=== PATIENT | male | born 1990 | race Caucasian/White ===

== ENCOUNTER 2016-10-23 22:54 | Emergency (ER) | payer OTHER ==
[~2016-10-23] VITALS: Ht 180.3 cm; Wt 68.0 kg
[~2016-10-23 22:54] MED LIST: ROXICODONE15 MG ORAL
[2016-10-23 22:55] VITALS: BP 114/78
[2016-10-23 23:10] VITALS: BP 105/74
--- NOTE | 2016-10-24 03:57 | Emergency Room Report ---
History of Present Illness General Chief Complaint: Behavioral Complaint Source: Patient Present Illness HPI 25-year-old male presents to ED for evaluation. Patient in by EMS, [employer] is also present. Per EMS patient reportedly overdosed on OxyContin. Reportedly took 6 tablets as stated by friends. Patient denies taking 6 tablets. States he took 3 tablets was not try to hurt himself. Upon arrival patient is agitated and upset. States that he was not try to hurt himself. Denies any suicidal or homicidal ideation. Denies hearing voices. Denies alcohol use. No other aggravating relieving factors. Denies any other associated Allergies: Coded Allergies: No Known Allergies (Unverified , 10/23/16) Patient History Past Medical History: none Past Surgical History: none Pertinent Family History: none Social History: Denies: alcohol use, drug use, smoking Immunizations: UTD Reviewed Nursing Documentation: PMH: Agreed, PSxH: Agreed Nursing Documentation-PMH Past Medical History: No History, Except For Review of Systems All Other Systems: negative except mentioned in HPI Physical Exam Vital Signs Date Time Temp Pulse Resp B/P Pulse Ox O2 Delivery O2 Flow Rate FiO2 10/23/16 22:36 99.1 99 20 112/78 98 Room Air Sp02 EP Interpretation: reviewed, normal General Appearance: no apparent distress, alert, GCS 15, non-toxic Head: normocephalic, atraumatic Eyes: bilateral eye PERRL, bilateral eye normal inspection ENT: hearing grossly normal, normal pharynx, no angioedema, normal voice Neck: full range of motion, supple/symm/no masses Respiratory: chest non-tender, lungs clear, normal breath sounds, speaking full sentences Cardiovascular #1: regular rate, rhythm, no edema Cardiovascular #2: 2+ carotid (R), 2+ carotid (L), 2+ radial (R), 2+ radial (L) , 2+ dorsalis pedis (R), 2+ dorsalis pedis (L) Gastrointestinal: normal bowel sounds, non tender, soft, non-distended, no guarding, no rebound Rectal: deferred Genitourinary: normal inspection, no CVA tenderness Musculoskeletal: back normal, gait/station normal, normal range of motion, non- tender Neurologic: alert, oriented x3, responsive, motor strength/tone normal, sensory intact, speech normal Psychiatric: judgement/insight normal, memory normal, anxious Reflexes: 3+ bicep (R), 3+ bicep (L), 3+ tricep (R), 3+ tricep (L), 3+ knee (R) , 3+ knee (L) Skin: normal color, no rash, warm/dry, well hydrated Lymphatic: no adenopathy Medical Decision Making Diagnostic Impression: Primary Impression: Overdose Qualified Codes: T50.904A - Poisoning by unspecified drugs, medicaments and biological substances, undetermined, initial encounter ER Course 25-year-old male presents ED reportedly overdosing on OxyContin Differential-overdose, psychosis, intoxication Patient placed on stretcher. After initial history and physical I ordered restraints, labs Patient was placed on 5150 hold by [employer] Patient freed himself of the restaints and eloped from ED [employer] was informed and they are currently looking for the patient Diagnosis-overdose Last Vital Signs Date Time Temp Pulse Resp B/P Pulse Ox O2 Delivery O2 Flow Rate FiO2 10/23/16 22:36 99.1 99 20 112/78 98 Room Air Status: unchanged Disposition: ELOPED Condition: Unknown Referrals: NOT CHOSEN TANNA/,REFERRING (PCP) SILAS CERVANTES M.D. Oct 24, 2016 03:56
[2016-10-24 05:57] VITALS: BP 114/78
== END 2016-10-23 23:21 | disposition left against medical advice (07) ==
LOC: EDBD 22:54 → EMR 23:20
DX: T40.2X4A Poisoning by other opioids, undetermined, initial encounter (principal); X58.XXXA Exposure to other specified factors, initial encounter; Y92.9 Unspecified place or not applicable
CPT/HCPCS: 99285

== ENCOUNTER 2017-10-12 02:34 | Emergency (ER) | payer SELFPAY ==
[~2017-10-12] VITALS: Ht 180.3 cm; Wt 64.0 kg
[2017-10-12 03:06] VITALS: BP 135/86
[2017-10-12] MEDS ORDERED: BUSPIRONE HCL15 MG ORAL (03:24)
--- NOTE | 2017-10-12 03:24 | Emergency Room Report ---
History of Present Illness General Chief Complaint: Behavioral Complaint Source: Patient Present Illness HPI Is a 26-year-old male who has history of opiate abuse. Also history of heroin abuse. He presents with chief complaint of anxiety. He said that he was clean for several months and relapsed with drug use again. He quit 2 days ago. Now is feeling anxious. He is worried that it may be something wrong with him. No suicidal thoughts homicidal thought. He has prescription for Valium and clonidine already. Denies any other complaint. He just wanted reassurance that he would not get cancer or some illness because of his drug use. Allergies: Coded Allergies: No Known Allergies (Unverified , 10/23/16) Patient History Past Medical History: see triage record, old chart reviewed Past Surgical History: other Pertinent Family History: none Social History: Reports: smoking, drug use Immunizations: other Reviewed Nursing Documentation: PMH: Agreed; PSxH: Agreed Nursing Documentation-PM Past Medical History: No History, Except For Review of Systems Eye: Denies: eye pain, blurred vision ENT: Denies: ear pain, nose congestion, throat swelling Respiratory: Denies: cough, shortness of breath Cardiovascular: Denies: chest pain, palpitations Gastrointestinal: Denies: abdominal pain, diarrhea, nausea, vomiting Musculoskeletal: Denies: back pain, joint pain Skin: Denies: rash Neurological: Denies: headache, numbness Endocrine: Denies: increased thirst, increased urine Hematologic/Lymphatic: Denies: easy bruising All Other Systems: negative except mentioned in HPI Physical Exam Vital Signs Date Time Temp Pulse Resp B/P (MAP) Pulse Ox O2 Delivery O2 Flow Rate FiO2 10/12/17 02:43 99.0 93 16 135/86 96 Room Air 99.0 vitals normal Sp02 EP Interpretation: reviewed, normal General Appearance: well appearing, no apparent distress, alert Head: normocephalic, atraumatic Eyes: bilateral eye PERRL, bilateral eye EOMI ENT: hearing grossly normal, normal pharynx Neck: full range of motion, supple, no meningismus Respiratory: chest non-tender, lungs clear, normal breath sounds Cardiovascular #1: regular rate, rhythm, no murmur Gastrointestinal: normal bowel sounds, non tender, no mass, no organomegaly, no bruit, non-distended Musculoskeletal: back normal, gait/station normal, normal range of motion Psychiatric: mood/affect normal Skin: warm/dry Medical Decision Making Diagnostic Impression: Primary Impression: Anxiety Additional Impression: Opiate withdrawal ER Course Patient presents with anxiety and withdrawal symptoms. Not suicidal or homicidal. No psychosis. We'll discharge home with BuSpar. Last Vital Signs Date Time Temp Pulse Resp B/P (MAP) Pulse Ox O2 Delivery O2 Flow Rate FiO2 10/12/17 03:06 99.0 93 16 135/86 96 Room Air 99.0 Status: unchanged Disposition: HOME, SELF-CARE Condition: Stable Scripts Buspirone Hcl* (BUSPIRONE HCL*) 15 Mg Tablet 15 MG ORAL TWICE A DAY, #30 TAB 0 Refills Prov: TYLER SHAFER M.D. 10/12/17 Referrals: NON PHYSICIAN (PCP) Patient Instructions: Self-Destructive Behavior Additional Instructions: Follow-up with your doctor in 7 days. Go to rehabilitation. Return if worse. TYLER SHAFER M.D. Oct 12, 2017 03:24
[2017-10-12 03:30] VITALS: BP 135/86
== END 2017-10-12 03:30 | disposition home or self-care (01) ==
LOC: EMR 03:08
DX: F41.9 Anxiety disorder, unspecified (principal); F11.23 Opioid dependence with withdrawal
CPT/HCPCS: 99283

== ENCOUNTER 2017-11-12 03:23 | Emergency (ER) | payer BC ==
[~2017-11-12] VITALS: Ht 177.8 cm; Wt 64.0 kg
[~2017-11-12 03:23] MED LIST changes: +BUSPIRONE HCL15 MG ORAL
[2017-11-12 03:45] VITALS: BP 113/78
[2017-11-12] MEDS ORDERED: IBUPROFEN600 MG ORAL (03:55)
[2017-11-12 04:01] VITALS: BP 113/78
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
== END 2017-11-12 04:01 | disposition home or self-care (01) ==
LOC: EMR 03:56
DX: S20.212A Contusion of left front wall of thorax, initial encounter (principal); Y93.83 Activity, rough housing and horseplay; Y92.019 Unspecified place in single-family (private) house as the place of occurrence of the external cause
CPT/HCPCS: 71045; 99283

== ENCOUNTER 2018-01-03 03:17 | Emergency (ER) | payer BC ==
[~2018-01-03] VITALS: Ht 177.8 cm; Wt 61.2 kg
[~2018-01-03 03:17] MED LIST changes: +IBUPROFEN600 MG ORAL
[2018-01-03] MEDS ORDERED: NKM (03:25)
[2018-01-03] MEDS ORDERED: Silver Nitrate Stick TOPIC ONE ×2 (03:31→03:45)
[2018-01-03] MEDS ORDERED: Oxymetazoline 0.05% Na Spray 30ml NASAL ONE ×2 (03:33→03:45)
[2018-01-03 03:45] VITALS: BP 122/83
--- NOTE | 2018-01-03 04:02 | Emergency Room Report ---
History of Present Illness General Chief Complaint: Nosebleed Source: Patient Present Illness HPI Patient reports that earlier this evening had taken a shower and after coming out of the shower he noticed bleeding from his left nose This happened to him about 5 years ago Patient has a nose job about 10 years ago Denies any recent trauma Denies any chest pain or shortness of breath denies any vomiting He reports seeing a larger clot coming out of it the left nose Denies any difficulty breathing Allergies: Coded Allergies: No Known Allergies (Unverified , 10/23/16) Patient History Past Medical History: see triage record Pertinent Family History: none Reviewed Nursing Documentation: PMH: Agreed; PSxH: Agreed Nursing Documentation-PMH Past Medical History: No History, Except For Review of Systems All Other Systems: negative except mentioned in HPI Physical Exam Vital Signs Date Time Temp Pulse Resp B/P (MAP) Pulse Ox O2 Delivery O2 Flow Rate FiO2 01/03/18 03:21 97.8 91 16 114/83 100 Room Air 97.9 Sp02 EP Interpretation: reviewed, normal General Appearance: well appearing, no apparent distress Head: normocephalic, atraumatic Eyes: bilateral eye PERRL, bilateral eye EOMI ENT: other - Anterior oozing from the left anterior chamber, there was also a larger clot that was removed by the patient blowing his nose, no obvious septal hematoma no obvious large lacerations Neck: full range of motion, supple Respiratory: chest non-tender, lungs clear Cardiovascular #1: normal peripheral pulses, regular rate, rhythm Gastrointestinal: non tender Rectal: normal rectal tone Musculoskeletal: normal inspection Neurologic: alert Skin: normal color, no rash Procedures Additional Procedure Procedure Narrative I have the patient blow his nose out with production of large clot from the left nostril Afrin was placed on a 4 x 4 and inserted in the left anterior chamber,, after this further evaluation was made no obvious active bleeding was noted, after this patient had silver nitrate applied, patient is observed and no further bleeding is seen, Afrin soaked 4 x 4's used for temporary packing in the left anterior chamber this will be removed tomorrow by the patient Medical Decision Making Diagnostic Impression: Primary Impression: Epistaxis ER Course Please refer to the note for the full specific and intervention At this time patient observed further remains hemodynamic stable Bleeding has been controlled appropriately and patient will have close outpatient follow-up Last Vital Signs Date Time Temp Pulse Resp B/P (MAP) Pulse Ox O2 Delivery O2 Flow Rate FiO2 01/03/18 03:45 98.0 74 18 122/83 100 Room Air 98.0 Status: improved Disposition: HOME, SELF-CARE Condition: Improved Referrals: NOT CHOSEN IPA/MD,REFERRING (PCP) Patient Instructions: Nosebleed, [id number] Additional Instructions: Patient is provided with the discharge instructions notified to follow up with primary doctor in the next 2-3 days otherwise return to the er with any worsening symptoms. Please note that this report is being documented using [employer] technology. This can lead to erroneous entry secondary to incorrect interpretation by the dictating instrument. Riya Ramos DO Jan 03, 2018 04:02
[2018-01-03 04:09] VITALS: BP 122/83
== END 2018-01-03 04:14 | disposition home or self-care (01) ==
LOC: EMR 03:50
DX: R04.0 Epistaxis (principal)
CPT/HCPCS: 99283

== ENCOUNTER 2018-03-31 05:05 | Emergency (ER) | payer BC ==
[~2018-03-31] VITALS: Ht 180.3 cm; Wt 68.0 kg
[~2018-03-31 05:05] MED LIST changes: +NKM
[2018-03-31 05:24] VITALS: BP 113/70
--- NOTE | 2018-03-31 05:28 | Emergency Room Report ---
History of Present Illness General Chief Complaint: Skin Rash/Abscess Source: Patient Present Illness HPI Is a 27-year-old male with a history opioid and cocaine abuse. He presents with chief complaint of growth in his left nose. He was here in December for an epistaxis. He said he noticed a growth there since then. Denies any fever chills. Occasional bleeding. He was concerned he may be an infection. No ENT follow-up. No pain right now. Allergies: Coded Allergies: No Known Allergies (Unverified , 10/23/16) Patient History Past Medical History: see triage record, old chart reviewed Past Surgical History: none Pertinent Family History: none Social History: Reports: drug use Immunizations: other Reviewed Nursing Documentation: PMH: Agreed; PSxH: Agreed Nursing Documentation-PMH Past Medical History: No History, Except For Review of Systems Eye: Denies: eye pain, blurred vision ENT: Denies: ear pain, nose congestion, throat swelling Respiratory: Denies: cough, shortness of breath Cardiovascular: Denies: chest pain, palpitations Gastrointestinal: Denies: abdominal pain, diarrhea, nausea, vomiting Musculoskeletal: Denies: back pain, joint pain Skin: Denies: rash Neurological: Denies: headache, numbness Endocrine: Denies: increased thirst, increased urine Hematologic/Lymphatic: Denies: easy bruising All Other Systems: negative except mentioned in HPI Physical Exam Vital Signs Date Time Temp Pulse Resp B/P (MAP) Pulse Ox O2 Delivery O2 Flow Rate FiO2 03/31/18 05:09 98.1 81 16 113/70 97 Room Air vitals normal Sp02 EP Interpretation: reviewed, normal General Appearance: well appearing, no apparent distress, alert Head: normocephalic, atraumatic Eyes: bilateral eye PERRL, bilateral eye EOMI ENT: hearing grossly normal, normal pharynx, other - Left nares: He has a 1 cm polyp anteriorly. No active bleeding. No abscess. Neck: full range of motion, supple, no meningismus Respiratory: chest non-tender, lungs clear, normal breath sounds Cardiovascular #1: regular rate, rhythm, no murmur Gastrointestinal: normal bowel sounds, non tender, no mass, no organomegaly, no bruit, non-distended Musculoskeletal: back normal, gait/station normal, normal range of motion Psychiatric: mood/affect normal Skin: warm/dry Medical Decision Making Diagnostic Impression: Primary Impression: Nasal polyp, unspecified ER Course Patient with a nasal polyp. We'll refer him to ENT. Told patient I would not biopsied here or remove it here. This is not an infection and abscess. This may been induced from trauma and/or drug abuse. Last Vital Signs Date Time Temp Pulse Resp B/P (MAP) Pulse Ox O2 Delivery O2 Flow Rate FiO2 03/31/18 05:09 98.1 81 16 113/70 97 Room Air Status: unchanged Disposition: HOME, SELF-CARE Condition: Stable Referrals: NOT CHOSEN IPA/MD,REFERRING (PCP) Additional Instructions: Abstain from drugs and alcohol. Follow up with ENT doctor RUDI. Return if symptoms worsen. Jarrod Cardoso MD Mar 31, 2018 05:28
[2018-03-31 05:35] VITALS: BP 113/70
== END 2018-03-31 05:35 | disposition home or self-care (01) ==
LOC: EMR 05:19
DX: J33.9 Nasal polyp, unspecified (principal)
CPT/HCPCS: 99282

== ENCOUNTER 2018-05-02 06:34 | Day surgery (SDC) | payer BC ==
[2018-05-02] VITALS (9 sets, daily range): BP systolic 119–146; BP diastolic 78–98
[~2018-05-02] VITALS: Ht 177.8 cm; Wt 63.5 kg
[~2018-05-02 06:34] MED LIST changes: +OXYCODONE HCL30 MG ORAL; +XANAX0.5 MG ORAL
[2018-05-02] MEDS ORDERED: Lidocaine 1% 10mg/ml/Epi 0.005mg/ml 30ml vial INJ ONE (07:01)
[2018-05-02] MEDS ORDERED: Lidocaine 1% MPF 10mg/ml 5ml ONE (07:10)
[2018-05-02] MEDS ORDERED: fentaNYL 100 mcg/2 mL IV ONE ×2 (07:10→08:07)
[2018-05-02] MEDS ORDERED: Midazolam 2mg/2ml Inj ONE ×2 (07:10→08:06)
[2018-05-02] MEDS ORDERED: Propofol 200mg/20ml IV ONE (07:10)
--- NOTE | 2018-05-02 07:23 | Anethesia Preoperative Eval ---
Anesthesia Pre-op PMH/ROS General Date of Evaluation: May 02, 2018 Time of Evaluation: 08:50 Anesthesiologist: Zoie Mary CRNA ASA Score: ASA 2 Mallampati Score Class I : Soft palate, uvula, fauces, pillars visible Class II: Soft palate, uvula, fauces visible Class III: Soft palate, base of uvula visible Class IV: Only hard plate visible Mallampati Classification: Class I Surgeon: Antonio Diagnosis: Cancer lesion of the septum Surgical Procedure: Biopsy of nasal septum lesion Anesthesia History: none Social History: smoking - social, drug use - Hx of opioid abuse, takes 6-7 tabs oxycodone daily Family History: no anesthesia problems Allergies: Coded Allergies: No Known Allergies (Unverified , 05/02/18) Medications: see eMAR Patient NPO?: Yes NPO Date: May 02, 2018 NPO Time: 00:00 Past Medical History Cardiovascular: Denies: HTN, CAD, HI, valve dz, arrhythmia, other Pulmonary: Denies: asthma, COPD, DIONISIO, other Gastrointestinal/Genitourinary: Denies: GERD, CRI, ESRD, other Neurologic/Psychiatric: Denies: dementia, CVA, depression/anxiety, TIA, other Endocrine: Denies: DM, hypothyroidism, steroids, other HEENT: Reports: other - Hx of epistaxis, cancerous lesion of septum; Denies: cataract (L), cataract (R), glaucoma, PO[place]AY IRA (L), POINT LAY IRA (R) Hematology/Immune: Denies: anemia, DVT, bleeding disorder, other Musculoskeletal/Integumentary: Denies: OA, RA, DJD, DDD, edema, other Other: other - Hx of substabce abuse and opiate withdrawal PMH Narrative: as above PSxH Narrative: rhinoplasty, septoplasty Anesthesia Pre-op Phys. Exam Physician Exam Last Vital Signs Date Time Temp Pulse Resp B/P (MAP) Pulse Ox O2 Delivery O2 Flow Rate FiO2 05/02/18 06:59 Room Air 05/02/18 06:55 98.2 75 18 119/78 100 Constitutional: NAD Neurologic: CN 2-12 intact Cardiovascular: RRR Respiratory: CTA Gastrointestinal: S/NT/ND Airway Exam Mallampati Score: Class I MO: full Neck: FROM TMD: > 3FB ROM: full Teeth: intact Dentures: no upper, no lower Anesthesia Pre-op A/P Risk Assessment & Plan Assessment: ASA 2, ok to proceed Plan: GA Status Change Before Surgery: No Pre-Antibiotics Given Within 1 Hr of Incision: Zoie Rodriguez CRNA May 02, 2018 07:23
[2018-05-02 07:32] LABS: ANION GAP 8 mmol/L (5-15); BLOOD UREA NITROGEN 12 mg/dL (7-18); CARBON DIOXIDE 29 MMOL/L (21-32); CHLORIDE 103 MMOL/L (98-107); POTASSIUM 3.7 MMOL/L (3.5-5.1); SODIUM 140 MMOL/L (136-145)
[2018-05-02 07:33] LABS: BASOPHILS % (AUTO) 2.4 % (0.0-2.0); EOSINOPHILS % (AUTO) 12.8 % (0.0-3.0); HEMATOCRIT 37.3 % (42.0-52.0); HEMOGLOBIN 13.3 G/DL (14.2-18.0); LYMPHOCYTES % (AUTO) 35.3 % (20.0-45.0); MEAN CORPUSCULAR VOLUME 86 FL (80-99); MONOCYTES % (AUTO) 8.4 % (1.0-10.0); NEUTROPHILS % (AUTO) 41.2 % (45.0-75.0); PLATELET COUNT 231 K/UL (150-450); RED BLOOD COUNT 4.34 M/UL (4.70-6.10)
[2018-05-02 07:51] LABS: APPEARANCE,URINE CLEAR; BILIRUBIN, URINE NEGATIVE (NEGATIVE); COLOR,URINE PALE YELLOW; GLUCOSE, URINE (UA) NEGATIVE (NEGATIVE); KETONES,URINE NEGATIVE (NEGATIVE); LEUKOCYTE ESTERASE ,URINE 1+ (NEGATIVE); NITRITE,URINE NEGATIVE (NEGATIVE); PH,URINE 5 (4.5-8.0); PROTEIN,URINE NEGATIVE (NEGATIVE); UROBILINOGEN,URINE NORMAL MG/DL (0.0-1.0)
--- NOTE | 2018-05-02 08:35 | Pre-Procedure Note/Attestation ---
Pre-Procedure Note/Attestation Complete Prior to Procedure Planned Procedure: left Attestation I attest that I discussed the nature of the procedure; its benefits; risks and complications; and alternatives (and the risks and benefits of such alternatives ), prior to the procedure, with the patient (or the patient's legal customer care representative). I attest that, if there was a reasonable possibility of needing a blood transfusion, the patient (or the patient's legal customer care representative) was given the [facility] standardized written summary, pursuant to the Patrice Isabella Blood Safety Act ([place] Health and Safety Code # 1645, as amended). I attest that I re-evaluated the patient just prior to the surgery and that there has been no change in the patient's H&P, except as documented below: Wayne Alvarez MD May 02, 2018 08:35
--- NOTE | 2018-05-02 08:37 | Pre-Procedure Note/Attestation ---
Pre-Procedure Note/Attestation Attestation I attest that I discussed the nature of the procedure; its benefits; risks and complications; and alternatives (and the risks and benefits of such alternatives ), prior to the procedure, with the patient (or the patient's legal traffic representative). I attest that, if there was a reasonable possibility of needing a blood transfusion, the patient (or the patient's legal traffic representative) was given the [facility] standardized written summary, pursuant to the Patrice Manuelito Blood Safety Act ([place] Health and Safety Code # 1645, as amended). I attest that I re-evaluated the patient just prior to the surgery and that there has been no change in the patient's H&P, except as documented below: Wayne Alvarez MD May 02, 2018 08:37
[2018-05-02] MEDS ORDERED: Sterile Water Irrig 1000ml IRRIG ONE (09:00)
[2018-05-02] MEDS ORDERED: NS Irrig 1000ml ONE (09:00)
[2018-05-02] MEDS ORDERED: Metoclopramide 10mg/2ml Inj IVP PRN (09:00)
[2018-05-02] MEDS ORDERED: LR 1000ml ONE (09:00)
[2018-05-02] MEDS ORDERED: Bacitracin Oint 15gm Tube TOPIC ONE (09:21)
--- NOTE | 2018-05-02 09:49 | Immediate Post-Op Evaluation ---
Immediate Post-Op Evalulation Immediate Post-Op Evalulation Procedure: Excision of LEFT septal lesion Date of Evaluation: May 02, 2018 Time of Evaluation: 09:41 IV Fluids: 800 ml LR Estimated Blood Loss: 10 ml Blood Pressure Systolic: 140 Blood Pressure Diastolic: 98 Pulse Rate: 84 Respiratory Rate: 16 O2 Sat by Pulse Oximetry: 98 Temperature (Fahrenheit): 97.7 Pain Score (1-10): 0 Nausea: No Vomiting: No Complications none Patient Status: awake, reacts, patent, extubated Hydration Status: adequate Given Within 1 Hr of Incision: Zoie Rodriguez CRNA May 02, 2018 09:49
--- NOTE | 2018-05-02 09:59 | 48 Hour Post Anesthesia Eval ---
Post Anesthesia Evaluation Procedure: Excision of LEFT septal lesion Date of Evaluation: May 02, 2018 Time of Evaluation: 09:59 Blood Pressure Systolic: 145 0: 96 Pulse Rate: 66 Respiratory Rate: 10 Temperature (Fahrenheit): 97.7 O2 Sat by Pulse Oximetry: 99 Airway: patent Nausea: No Vomiting: No Pain Intensity: 8 If pain is > 6 Comment: history of opiate addiction, dilaudid ordered PRN, appears comfortable Hydration Status: adequate Cardiopulmonary Status: stable Mental Status/LOC: patient returned to baseline Follow-up Care/Observations: per plastic surgery Post-Anesthesia Complications: none Follow-up care needed: N/A Zoie Mary CRNA May 02, 2018 09:59
[2018-05-02] MEDS: Hydromorphone 0.5mg/0.5ml inj IVP PRN ×2 (10:00→10:16)
--- NOTE | 2018-05-03 20:45 | Operative Note - Dictated ---
DATE OF OPERATION: 05/02/2018 PREOPERATIVE DIAGNOSIS: Lesion of left septum. POSTOPERATIVE DIAGNOSES: Lesion of left septum, still pending pathology. The patient also had friable mucosa on both sides. PROCEDURE PERFORMED: Excisional biopsy with cautery of the septum on the left side with packing of iodoform and bacitracin placed in both nasal airways. DESCRIPTION OF PROCEDURE: The patient has a history of bleeding from the left septum. Upon examination, there was almost a centimeter of lesion that looked like it was either a wart or a pyogenic granuloma or something else and that was excised on the local using 1% Xylocaine 1:200,000 epinephrine and then the cautery using the needlepoint [place] needle and then bacitracin with iodoform gauze was packed in the left side as well as the right. The patient was extubated and transferred to the postop recovery facility in satisfactory condition. Procedure was done under general anesthesia, and it was a lesion of the left septum. Wayne Alvarez M.D. DR: Balaji JOB#: [id number] CC:
== END 2018-05-02 11:10 | disposition home or self-care (01) ==
LOC: SUR 06:34
DX: D18.09 Hemangioma of other sites (principal)
CPT/HCPCS: 30118; 36415; 80048; 81001; 85025; 85610; 85730; 86703; J1170; J2250; J2704; J3010; 94003; 94150

== ENCOUNTER 2018-07-01 02:28 | Emergency (ER) | payer BC ==
[~2018-07-01] VITALS: Ht 180.3 cm; Wt 63.5 kg
[2018-07-01 02:38] VITALS: BP 132/76
--- NOTE | 2018-07-01 02:39 | NUR ---
ED Nurse Note: Patient walked in from home with steady gait, complaining of bilateral foot swelling. Per patient he had gout history about 10 years ago, and he thinks it can be gaut again. AAO x4, VSS at this time, skin is dry, intact, warm to touch.
[2018-07-01 03:00] VITALS: BP 132/76
[2018-07-01] MEDS ORDERED: Bactrim-DS 1 tab ORAL ONE (03:00)
[2018-07-01] MEDS ORDERED: DOXYCYCLINE MO100 MG ORAL (03:01)
[2018-07-01] MEDS ORDERED: BENADRYL25 MG ORAL (03:01)
--- NOTE | 2018-07-01 03:02 | Emergency Room Report ---
History of Present Illness General Chief Complaint: Pain Source: Patient, Medical Record Present Illness HPI Is a 27-year-old male with history anxiety and drug abuse. He presents with chief complaint of swelling to both feet. Onset today. Itching and felt numb to the toes. No fever chills but no trauma. History of gout in the past. Denies any other complaint. Pain is mostly in the right side. Minimal pain. Allergies: Coded Allergies: No Known Allergies (Unverified , 05/02/18) Patient History Past Medical History: see triage record, old chart reviewed Past Surgical History: other Pertinent Family History: none Social History: Reports: drug use Immunizations: other Reviewed Nursing Documentation: PMH: Agreed; PSxH: Agreed Nursing Documentation-PM Past Medical History: No History, Except For Hx Cardiac Problems: No Hx Asthma: Yes - as a child Hx Cancer: No Hx Gastrointestinal Problems: No Hx Neurological Problems: Yes - hx scoliosis Review of Systems Eye: Denies: eye pain, blurred vision ENT: Denies: ear pain, nose congestion, throat swelling Respiratory: Denies: cough, shortness of breath Cardiovascular: Denies: chest pain, palpitations Gastrointestinal: Denies: abdominal pain, diarrhea, nausea, vomiting Musculoskeletal: Reports: joint pain, joint swelling, muscle pain; Denies: back pain Skin: Denies: rash Neurological: Denies: headache, numbness Endocrine: Denies: increased thirst, increased urine Hematologic/Lymphatic: Denies: easy bruising All Other Systems: negative except mentioned in HPI Physical Exam Vital Signs Date Time Temp Pulse Resp B/P (MAP) Pulse Ox O2 Delivery O2 Flow Rate FiO2 07/01/18 02:32 98.2 89 19 132/76 96 Room Air vitals normal Sp02 EP Interpretation: reviewed, normal General Appearance: well appearing, no apparent distress, alert Head: normocephalic, atraumatic Eyes: bilateral eye PERRL, bilateral eye EOMI ENT: hearing grossly normal, normal pharynx Neck: full range of motion, supple, no meningismus Respiratory: chest non-tender, lungs clear, normal breath sounds Cardiovascular #1: regular rate, rhythm, no murmur Gastrointestinal: normal bowel sounds, non tender, no mass, no organomegaly, no bruit, non-distended Musculoskeletal: back normal, gait/station normal, normal range of motion, other - Left foot: There is tenderness and swelling to the left great toe at the ball of the toe. No fluctuant. No abscess. Tender over the first MTP joint. Psychiatric: mood/affect normal Skin: warm/dry Medical Decision Making Diagnostic Impression: Primary Impression: Cellulitis of foot, right Additional Impression: Edema of both feet ER Course Patient with edema to both feet. Nonpitting. This may be inflammatory process or allergic reaction. Could also be some secondary cellulitis but no abscess. Discharged with Benadryl and antibiotics. Last Vital Signs Date Time Temp Pulse Resp B/P (MAP) Pulse Ox O2 Delivery O2 Flow Rate FiO2 07/01/18 02:38 98.2 19 132/76 96 Room Air 07/01/18 02:32 89 Status: unchanged Disposition: HOME, SELF-CARE Condition: Stable Scripts Diphenhydramine Hcl* (BENADRYL*) 25 Mg Capsule 50 MG ORAL Q6H PRN for Itching, #30 CAP Prov: Jarrod Cardoso MD 07/01/18 Doxycycline Monohydrate* (DOXYCYCLINE MONOHYDRATE*) 100 Mg Capsule 100 MG ORAL Q12H, #14 CAP 0 Refills Prov: Jarrod Cardoso MD 07/01/18 Referrals: NOT CHOSEN IPA/,REFERRING (PCP) Additional Instructions: Elevate leg. Ice pack to the area. Follow-up with your DrHannah in 2 to 3 days for recheck. Return if worse. Jarrod Cardoso MD Jul 01, 2018 03:02
--- NOTE | 2018-07-01 03:05 | NUR ---
ED Nurse Note: Pt cleared by health care Provider for discharge. DC instructions/prescription was given and explained to pt and verbalized understanding of teachings. All medical deviecs such as ID band removed. Pt is AAO x4, ambulatory and left with all personal belongings.
== END 2018-07-01 03:05 | disposition home or self-care (01) ==
LOC: EMR 02:54
DX: L03.115 Cellulitis of right lower limb (principal); R60.0 Localized edema
CPT/HCPCS: 99282

== ENCOUNTER 2020-03-25 01:54 | Emergency (ER) | payer BC, MEDICAID ==
[~2020-03-25] VITALS: Ht 177.8 cm; Wt 72.6 kg
[~2020-03-25 01:54] MED LIST changes: +BENADRYL25 MG ORAL; +DOXYCYCLINE MO100 MG ORAL
--- NOTE | 2020-03-25 01:56 | NUR ---
ED Nurse Note: Pt walked into to the ED due to N/V for a month now. According to the Pt, he has a hx of substance abuse but ge been clean for a month. Pt is said, he has alcohol in his system. Pt vitals are stable. No chills,fever, cough and sob at the moment.
[2020-03-25 02:00] VITALS: BP 138/79
--- NOTE | 2020-03-25 02:32 | NUR ---
ED Nurse Note: iv intiated; lab drawn and sent to the lab.
--- NOTE | 2020-03-25 02:36 | Emergency Room Report ---
History of Present Illness General Chief Complaint: Nausea Source: Patient Present Illness HPI Disclaimer: Please note that this report is being documented using [email or web address] technology. This can lead to erroneous entry secondary to incorrect interpretation by the dictating instrument. HPI: 29-year-old male presents for evaluation of nausea. Patient states he has been nauseated daily for the past month. Prior history of opiate abuse and is now in remission for 45 days. States he has constant nausea sometimes exacerbated by eating. Will occasionally vomit. Denies abdominal pain. Denies current nausea. Does not take antacids. Denies diarrhea but does report loose stools. Denies urinary symptoms. Has not seen PMD. Patient states is giving him significant anxiety. Also reports a family history of hyperthyroidism would like his thyroid checked. PMH: Prior substance abuse PSH: Reviewed Allergies: Reviewed Social Hx: Prior substance abuse Allergies: Coded Allergies: No Known Allergies (Unverified , 05/02/18) COVID-19 Screening Contact w/high risk pt: No Experienced COVID-19 symptoms?: No COVID-19 Testing performed [employer] REPRESENTATIVE: Yes - january 2020 COVID-19 Screening: Negative COVID-19 COVID-19 Testing Source: [facility] Documentation-PMH Past Medical History: No History, Except For Hx Cardiac Problems: No Hx Asthma: Yes - as a child Hx Cancer: No Hx Gastrointestinal Problems: No Hx Neurological Problems: Yes - hx scoliosis Review of Systems All Other Systems: negative except mentioned in HPI Physical Exam Vital Signs Date Time Temp Pulse Resp B/P (MAP) Pulse Ox O2 Delivery O2 Flow Rate FiO2 03/25/20 01:55 98.4 103 18 140/86 (104) 96 Room Air General: Awake and alert, anxious appearing HEENT: NC/AT. EOMI. Cardiovascular: RRR. S1 and S2 normal. No murmur appreciated Resp: Normal work of breathing. No cough, wheezing or crackles appreciated Abdomen: Abdomen is soft, nondistended. Nontender Skin: Intact. No abrasions, laceration or rash over the exposed skin MSK: Normal tone and bulk. Moving all extremities. No obvious deformity. Neuro: Awake and alert. Mentating appropriately. Medical Decision Making Diagnostic Impression: Primary Impression: Eloped from emergency department Additional Impression: Nausea & vomiting ER Course 29-year-old male presents for evaluation of intermittent nausea and vomiting for the past month. Differential includes was not limited to the long symptoms of symptoms abuse, gastritis, gastroenteritis, hepatitis, chronic pancreatic disease, acid reflux among others. Had obtained labs which thus far have returned within normal limits. Approximately 0315 the patient eloped from the emergency department. He had been getting in verbal altercations with police who are in the emergency department with another patient in custody. He is fixated on use officers arguing with them in the hallways and refusing to go back into his room. Cooperative discussed the patient's lab results that I had up to this point but he refused. We eloped to the emergency department through ambulance bay. Walking with a steady gait. Laboratory Tests Test 03/25/20 02:25 White Blood Count 9.2 K/UL (4.8-10.8) Red Blood Count 4.26 M/UL (4.70-6.10) L Hemoglobin 13.4 G/DL (14.2-18.0) L Hematocrit 36.1 % (42.0-52.0) L Mean Corpuscular Volume 85 FL (80-99) Mean Corpuscular Hemoglobin 31.5 PG (27.0-31.0) H Mean Corpuscular Hemoglobin Concent 37.1 G/DL (32.0-36.0) H Red Cell Distribution Width 14.6 % (11.6-14.8) Platelet Count 246 K/UL (150-450) Mean Platelet Volume 7.6 FL (6.5-10.1) Neutrophils (%) (Auto) 65.5 % (45.0-75.0) Lymphocytes (%) (Auto) 19.6 % (20.0-45.0) L Monocytes (%) (Auto) 7.1 % (1.0-10.0) Eosinophils (%) (Auto) 6.2 % (0.0-3.0) H Basophils (%) (Auto) 1.5 % (0.0-2.0) Sodium Level 135 MMOL/L (136-145) L Potassium Level 3.6 MMOL/L (3.5-5.1) Chloride Level 100 MMOL/L (98-107) Carbon Dioxide Level 25 MMOL/L (21-32) Anion Gap 10 mmol/L (5-15) Blood Urea Nitrogen 16 mg/dL (7-18) Creatinine 0.9 MG/DL (0.55-1.30) Estimated Glomerular Filtration Rate > 60 mL/min (>60) Glucose Level 110 MG/DL (74-106) H Calcium Level 8.5 MG/DL (8.5-10.1) Total Bilirubin Pending Aspartate Amino Transferase (AST) Pending Alanine Aminotransferase (ALT) Pending Alkaline Phosphatase Pending Total Protein Pending Albumin Pending Globulin Pending Lipase Pending Thyroid Stimulating Hormone (TSH) Pending Free Thyroxine 1.10 NG/DL (0.76-1.46) Last Vital Signs Date Time Temp Pulse Resp B/P (MAP) Pulse Ox O2 Delivery O2 Flow Rate FiO2 03/25/20 02:00 98.3 69 18 138/79 97 Room Air Disposition: ELOPED Condition: Stable Scripts Metoclopramide Hcl* (REGLAN*) 10 Mg Tablet 10 MG ORAL THREE TIMES A DAY, #20 TAB Prov: Matthew George MD 03/25/20 Famotidine* (Pepcid 20mg tablet*) 20 Mg Tablet 20 MG ORAL DAILY for Gerd, #30 TAB 0 Refills Prov: Matthew George MD 03/25/20 Referrals: Wayne Alvarez MD (PCP) Matthew George MD Mar 25, 2020 02:36
[2020-03-25 02:38] LABS: BASOPHILS % (AUTO) 1.5 % (0.0-2.0); EOSINOPHILS % (AUTO) 6.2 % (0.0-3.0); HEMATOCRIT 36.1 % (42.0-52.0); HEMOGLOBIN 13.4 G/DL (14.2-18.0); LYMPHOCYTES % (AUTO) 19.6 % (20.0-45.0); MEAN CORPUSCULAR VOLUME 85 FL (80-99); MONOCYTES % (AUTO) 7.1 % (1.0-10.0); NEUTROPHILS % (AUTO) 65.5 % (45.0-75.0); PLATELET COUNT 246 K/UL (150-450); RED BLOOD COUNT 4.26 M/UL (4.70-6.10); RED CELL DISTRIBUTION WIDTH 14.6 % (11.6-14.8); WHITE BLOOD COUNT 9.2 K/UL (4.8-10.8)
--- NOTE | 2020-03-25 02:51 | NUR ---
ED Nurse Note: Pt left the Ed department to go get soemthing from the vending machine. I offered him a sandwich but her refused. I took out his iv .
[2020-03-25] MEDS ORDERED: FAMOTIDINE20 MG ORAL (02:54)
[2020-03-25] MEDS ORDERED: REGLAN10 MG ORAL (02:54)
--- NOTE | 2020-03-25 03:02 | NUR ---
ED Nurse Note: pt is back from the vending machine.
[2020-03-25 03:05] LABS: ANION GAP 10 mmol/L (5-15); BLOOD UREA NITROGEN 16 mg/dL (7-18); CALCIUM 8.5 MG/DL (8.5-10.1); CARBON DIOXIDE 25 MMOL/L (21-32); CHLORIDE 100 MMOL/L (98-107); CREATININE 0.9 MG/DL (0.55-1.30); POTASSIUM 3.6 MMOL/L (3.5-5.1); SODIUM 135 MMOL/L (136-145)
[2020-03-25 03:17] LABS: ALANINE AMINOTRANSFERASE 39 U/L (12-78); ALBUMIN 4.1 G/DL (3.4-5.0); ALBUMIN/GLOBULIN RATIO 1.1 (1.0-2.7); ALKALINE PHOSPHATASE 70 U/L (46-116); ASPARTATE AMINO TRANSFERASE 26 U/L (15-37); BILIRUBIN,TOTAL 0.6 MG/DL (0.2-1.0)
[2020-03-25 03:18] VITALS: BP 132/76
--- NOTE | 2020-03-25 03:18 | NUR ---
ED Nurse Note: Pt started being aggressive when he saw the two officers standing in the ED . we told him to go back to his room but he refused. He decided to leave the Ed department; i Explained the risk x3 of leaving without getting D/C. However, he still decided to leave. I asked him to sign the AMA papaer but he refused to sign.
== END 2020-03-25 03:18 | disposition left against medical advice (07) ==
LOC: EMR 02:02
DX: R11.2 Nausea with vomiting, unspecified (principal); Z53.29 Procedure and treatment not carried out because of patient's decision for other reasons
CPT/HCPCS: 36415; 80053; 83690; 84439; 84443; 85025; 99284